=== PATIENT | female | born 1985 | race Caucasian/White ===

== ENCOUNTER 2017-05-09 19:34 | Observation (INO) ==
[2017-05-09] MEDS ORDERED: Ringers Solution, Lactated 1,000 ML IVC SCH (20:00)
--- NOTE | 2017-05-09 20:29 | OB/GYN History & Physical ---
Date of Encounter: 05/09/17 Time of Encounter: 20:15 Assessment and Plan (1) Lower abdominal pain Current visit: Yes Status: Acute History of Monitoring - baseline 140 with variability and accels - category I Contractions irregular Unknown history - ultrasound for dating, obtain labs Hydrate - LR 125 ml/hr Check UA Cervix closed Labor eval (2) Chest pain Current visit: Yes Status: Acute Symptoms unlikely cardiac in nature Obtain EKG Qualifiers: Chest pain type: unspecified Qualified Code(s): R07.9 - Chest pain, unspecified (3) History of delivery Current visit: Yes Status: Acute (4) Chronic hypertension Current visit: Yes Status: Acute BP 136/88 - not currently taking any medications (5) 39 weeks gestation of Current visit: Yes Status: Acute History of Present Illness Chief complaint: Lower Abdominal Pain HPI: Ms. Mcpherson is a 32 year old female at 39w0d presenting to L&D for lower abdominal pain and pain along her scar. She states that the pain is constant, non-radiating, and began yesterday and has been worsening. She is having contractions about every 12 minutes. She also reports some intermittent retrosternal chest pain over the past day as well. There is no pattern to the chest pain and it is not associated with other symptoms such as nausea or diaphoresis. She recently moved from [facility] about 2-3 weeks ago. She states that she did received care, but has no records with her. Her LIBAN of 05/16/17. She does have chronic HTN, but is not on any medications. Prior delivery was via for breech presentation. She states that there have been no problems with this . Reports good movement. Denies loss of fluid, vaginal bleeding, or vaginal discharge. Admits to headache and some blurry vision earlier today that has now resolved. Also admits to urinary frequency. She denies fevers, chills, dyspnea, N/V, constipation, diarrhea, dysuria, or edema. labs unknown. Past Med Surg Social Fam HX - Past Medical History Medical history: hypertension Psychiatric history: no psych history - Past Surgical History Surgical History: - Social History Smoking Status: Current every day smoker Packs per day: 1/2 pac Alcohol use: none Drug use: none - Family History Father Family Member Ethnicity: Non- Living Status: Still Living Hx Family Cardiac Disorders: Yes (HTN, cardiac stent) Hx Family Cancer: Yes (bladder) Obstetrical History - Pregnancies : 3 Para: 2 Term: 1 : 0 Ab's: 1 Livin Review of System OB All systems PM: reviewed and no additional remarkable complaints except as stated Exam - Constitutional Constitutional: well developed, well nourished, no acute distress, average body habitus - HEENT HEENT: Normocephaly, Mucus Membranes Moist - Lungs Respiratory exam: CTAB - Cardiovascular Cardiovascular exam: RRR, +S1, +S2 - Abdomen Abdomen: Present: bowel sounds normal, gravid. Absent: guarding noted Abdomen detail: right lower quadrant: tenderness, left lower quadrant: tenderness - Extremities Extremities exam: normal capillary refill, normal inspection - Vagina Vagina: Present: normal moisture - Cervix Dilation: 0 (per nursing) - Uterus Uterus exam: Present: normal size, normal contour - Comments Comments: FHT - baseline 140 with variability and accels - category I Contractions irregular Results Result Diagrams: 05/09/17 20:23 All other labs normal. - VTE Reasons for not Prescribing Prophylaxis: Treatment not Indicated - Low risk for VTE - Attending Attestation I examined this patient and my medical decision-making was reviewed with the Resident Physician. I agree with the documented findings, disposition and treatment plan as described except to the extent set forth below. Reviewed labs and urine - patient dehydrated. IV fluids - 1 liter bolus given. CBC - WNL NST - reactive category I tracing; no contractions noted after returned from ultrasound Ultrasound confirms dating; normal JOAN EKG - NSR Pain in scar not resolved. Patient wishes to go home and return tomorrow for ; encouraged patient to stay until AM for repeat due to unusual pain. Discussed POC with Dr Shafer. Patient signed out against medical advice.
[2017-05-09 20:37] LABS: Basophils # 0.1 K/mcL (0.0-0.2); Basophils % 0.4 %; Eosinophils # 0.1 K/mcL (0.0-0.6); Eosinophils % 0.6 %; Hematocrit 33.7 % (35.3-44.9); Immature Granulocytes % 1.8 % (0-4); Lymphocytes # 2.8 K/mcL (0.6-4.6); Lymphocytes % 18.6 %; Mean Corpuscular HGB Conc 32.6 g/dL (31.6-35.5); Mean Corpuscular Hemoglobin 27.9 pg (28.0-33.3); Mean Corpuscular Volume 85.5 fL (83.0-100.0); Mean Platelet Volume 11.1 fL (9.4-12.4); Monocytes # 0.6 K/mcL (0.0-1.3); Monocytes % 4.3 %; Nucleated Red Blood Cells 0.1 /100 WBC (0); Platelet Count 257 K/mcL (140-400); Red Blood Count 3.94 M/mcL (3.82-4.97); Red Cell Distribution Width 13.2 % (11.5-14.5); Segmented Neutrophils % 74.3 %
[2017-05-09 21:29] LABS: Bilirubin,Urine Small (Negative); Blood,Urine Negative (Negative); Clarity,Urine Cloudy (Clear); Color,Urine Dark Yellow (Yellow); Glucose,Urine (UA) Normal (Normal); Ketones,Urine 40 mg/dL (Negative); Leukocyte Esterase,Urine Small (Negative); Nitrite,Urine Negative (Negative); Protein,Urine Trace mg/dL (Neg-Trace); Specific Gravity,Urine 1.026 (1.010-1.025); Urobilinogen,Urine Normal (Normal)
[2017-05-09 21:31] LABS: Hyaline Casts,Urine Few per lpf (None-Few); Squamous Epithelial Cell,Urine Many per lpf (None-Few); WBC,Urine 15-30 per hpf (0-3)
[2017-05-09 21:44] LABS: Bacteria,Urine Moderate per hpf (None-Few); Mucus,Urine Many (Few)
[2017-05-09 21:51] LABS: Amphetamine Screen,Urine Negative ng/mL (Cutoff=1000); Barbiturate Screen,Urine Negative ng/mL (Cutoff=200); Benzodiazepines Screen,Urine Negative ng/mL (Cutoff=200); Cannabinoid Screen,Urine Negative ng/mL (Cutoff = 50); Cocaine Screen,Urine Negative ng/mL (Cutoff= 300); Opiate Screen,Urine Negative ng/mL (Cutoff=300); Phencyclidine Screen,Urine Negative ng/mL (Cutoff=25)
[2017-05-10 03:20] LABS: HIV-1&2 Antibody & p24 Ag Nonreactive (Nonreactive); Hepatitis B Surface Antigen Nonreactive (Nonreactive)
[2017-05-10 11:30] LABS: Rubella IgG Antibody Negative (POSITIVE); Varicella Zoster IgG Antibody Positive
== END 2017-05-09 22:32 | disposition left against medical advice (07) ==
LOC: 1NENULAB
PROVIDERS: ADMIT Advanced Practice Midwife; ATTEND Advanced Practice Midwife

== ENCOUNTER 2017-05-10 06:12 | Inpatient (IN) ==
[2017-05-10] MEDS ORDERED: Metoclopramide 10 MG/2 ML VIAL IVP ONE (06:45)
[2017-05-10] MEDS ORDERED: Naloxone 0.4 MG/ML INJ IVP PRN (06:45)
[2017-05-10] MEDS ORDERED: Ondansetron 4 MG/2 ML VIAL IVP PRN ×4 (06:45→14:42)
[2017-05-10] MEDS ORDERED: Oxytocin 20 units/ LR 1000 mL 20 UNIT/1,000 ML BAG IVC ONE ×3 (06:45→14:23)
[2017-05-10] MEDS ORDERED: Oxytocin 20 units/ LR 1000 mL 20 UNIT/1,000 ML BAG IVC SCH ×3 (06:45→14:45)
[2017-05-10] MEDS ORDERED: Famotidine 20 MG/2 ML VIAL IVP ONE (06:45)
[2017-05-10] MEDS ORDERED: Ringers Solution, Lactated 1,000 ML ONE ×4 (06:58→09:49)
[2017-05-10 07:20] LABS: Basophils # 0.1 K/mcL (0.0-0.2); Basophils % 0.5 %; Eosinophils # 0.1 K/mcL (0.0-0.6); Eosinophils % 0.8 %; Hematocrit 33.1 % (35.3-44.9); Hemoglobin 10.8 g/dL (11.5-15.4); Lymphocytes # 2.5 K/mcL (0.6-4.6); Lymphocytes % 18.6 %; Mean Corpuscular HGB Conc 32.6 g/dL (31.6-35.5); Mean Corpuscular Hemoglobin 28.1 pg (28.0-33.3); Mean Platelet Volume 11.4 fL (9.4-12.4); Monocytes # 0.7 K/mcL (0.0-1.3); Neutrophils # 9.7 K/mcL (1.6-8.9); Nucleated Red Blood Cells 0.2 /100 WBC (0); Platelet Count 264 K/mcL (140-400); Red Blood Count 3.85 M/mcL (3.82-4.97); Red Cell Distribution Width 13.2 % (11.5-14.5); Segmented Neutrophils % 73.1 %
[2017-05-10] MEDS ORDERED: EPHEDrine 50 MG/ML VIAL ONE (07:50)
[2017-05-10] MEDS ORDERED: *HR* FentaNYL (PF) 100 MCG/2 ML VIAL ONE (07:50)
[2017-05-10] MEDS ORDERED: Morphine Sulfate/PF 5mg/10mL Vial ONE (07:50)
[2017-05-10] MEDS ORDERED: Ondansetron 4 MG/2 ML VIAL ONE (07:53)
[2017-05-10] MEDS ORDERED: *HR* Phenylephrine 10 MG/ML VIAL ONE (07:53)
[2017-05-10] MEDS ORDERED: Dexamethasone 4 MG/ML VIAL ONE (07:53)
[2017-05-10] MEDS ORDERED: *HR* Oxytocin 10 UNIT/ML VIAL IM ONE ×2 (07:55→09:49)
[2017-05-10] MEDS ORDERED: ceFAZolin 2,000 MG in Water for inj. (sterile) 20 ML IVP ONE (08:02)
--- NOTE | 2017-05-10 08:20 | Anesthesia Evaluation PreOp ---
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 Any Significant HX Other Medical History: Denies Any Significant HX Anesthesia History: No Prior Anesthetic Complications : Yes Test: Positive Alcohol Use: none Drug use: none Medications and Allergies No Known Home Drugs 05/10/17 [History] 3 Allergy/AdvReac Type Severity Reaction Status Date / Time Fish Containing Products Allergy Anaphylaxis Verified 05/10/17 06:19 [place] And Derivatives AdvReac Rash Verified 05/10/17 06:19 - Meds/Allergy Pre-op Review Medications Reviewed: Yes Allergies Reviewed: Yes Beta Blockers on Current Med List: No Anesthesia Results - Labs 05/10/17 06:30 Anesthesia Exam - HEENT Pupil (Motor): Pupils equal Mallampati: III Teeth: Normal Oral Opening: Less than or equal to 3 - 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
--- NOTE | 2017-05-10 08:21 | History & Physical Report ---
Date of Encounter: 05/10/17 Time of Encounter: 08:19 24 Hour HP Update - Instructions Instructions: If the History and Physical is less than 30 days old and was completed prior to A.M. admission and or procedure and has NOT been updated on calendar day of procedure please complete this update prior to performing procedure. - Update Patient reports changes in Medical Condition: No Changes in examination, assessment, or condition: No Changes in Medication: No Preop tests/diagnostics Reviewed: Yes Surgery Remains Indicated: Yes Consent for Planned Operative Procedure(s) Verified: Yes Additions to current History and Physical: heart tones 130s, category 1, contractions irregular - Pre-Operative Checklist Preoperative Checklist Indicated: Yes Prophylactic Antibiotic Ordered: Yes Home Medications Include Beta Tita: No Beta Tita Taken Today (Day of Surgery): No Beta Tita Taken Yesterday (Day Prior to Surgery): No Is VTE Prophylaxis Indicated?: Yes
[2017-05-10 08:28] LABS: Amphetamine Screen,Urine Negative ng/mL (Cutoff=1000); Barbiturate Screen,Urine Negative ng/mL (Cutoff=200); Benzodiazepines Screen,Urine Negative ng/mL (Cutoff=200); Cannabinoid Screen,Urine Negative ng/mL (Cutoff = 50); Cocaine Screen,Urine Negative ng/mL (Cutoff= 300); Opiate Screen,Urine Negative ng/mL (Cutoff=300); Phencyclidine Screen,Urine Negative ng/mL (Cutoff=25)
--- NOTE | 2017-05-10 09:27 | Anesthesia Procedures ---
Date of Encounter: 05/10/17 Time of Encounter: 08:30 Procedures: Anesthesia - Epidural/Spinal Patient ID/Chart reviewed: Yes Patient examined: Yes OB Eval: Gestational age: 40 OB Eval: : 3 OB Eval: Hx Para: 1 OB Eval: Contractions: Non-stressed pattern Consent Obtained: Yes Site Prep: Aseptic Technique, Sterile prep and drape, Povidone-Iodine 1% Patient position: upright Local Anesthetic: Lidocaine 1% Amount of Local Anesthetic used: 3 Interspace Used: L4-L5 Loss of Resistance (MARIA ANTONIA): No Blood: No CSF: Yes Paresthesia: Yes Spinal Dose: bupivicaine0.75% [id number] Vitals + FHT's: stable throughout see nursing notes
[2017-05-10] MEDS ORDERED: Ondansetron 4 MG/2 ML VIAL IVP ONE (09:28)
[2017-05-10] MEDS ORDERED: *HR* Morphine 2 MG/ML SYRINGE IVP PRN (09:28)
[2017-05-10] MEDS ORDERED: Ibuprofen 400 MG TABLET PO PRN (09:28)
[2017-05-10] MEDS ORDERED: *HR* OxyCODONE/APAP 5/325 TABLET PO PRN ×3 (09:28→14:42)
--- NOTE | 2017-05-10 10:17 | OB/GYN Procedure Note ---
Section - Date of procedure: 05/10/17 Preop diagnosis: desires repeat , other ( care elsewhere) Post-op diagnosis: same (Pelvic adhesions) Procedure: section, repeat low transverse (Extensive adhesiolysis) Surgeon: Jyotsna Levine Estimated blood loss (cc): 400 Was there an judicial administrative assistant present: Yes Logistics Program Manager: Bailey Pablo Anesthesiologist: Walker Tubbs Medication Nurse: Vivi Mccollum Anesthesia Type: Spinal section complications: none Disposition: L&D Recovery Room Specimens: Placenta, Cord segment - (s) Infant A Delivery Date: 05/10/17 Infant Delivery Time: 09:14 Presentation: vertex Position: CLARE Route of delivery: other Gender: Female Viability: Viable Pounds: 7 Ounces: 0 at 1 minute: 8 at 5 minutes: 9 Shoulder Dystocia: not encountered Placenta: spontaneous, uterine exploration Cord: nuchal cord, 3 umbilical vessels, nuchal reduced - Narrative Narrative: The patient was taken to the operating room and given spinal anesthesia adequate for abdominal and pelvic surgery. She was prepped and draped in the usual sterile fashion. Timeout was completed. A Pfannenstiel skin incision was made with the scalpel. The subcutaneous tissue was sharply dissected down to the fascia. The fascia was incised in the midline and extended bilaterally with Pino scissors.. 2 straight [place] clamps were placed on the inferior fascial edge and the fascia was bluntly and sharply dissected away from the rectus muscles. This was repeated superiorly. The peritoneum was bluntly and sharply entered with omental adhesions noted densely adherent. There were dense omental adhesions anteriorly, over the anterior wall of the uterus and densely adherent to the peritoneal bladder reflection which were lysed with a Bovie and hemostasis achieved. Vesicouterine peritoneum was incised and reflected inferiorly and the bladder blade was replaced to protect the bladder. The lower uterine segment was extremely thin and was entered into the amnion with the scalpel. Clear fluid was seen. This was followed by the vertex delivery of a viable and vigorous female infant weighing 7# 0 oz with Apgars of 8 at 1 minute and 9 at 5 minutes. was placed on the maternal abdomen. The cord was clamped and cut after a delay. Infant was handed to the nursery care team. The placenta was delivered spontaneous and intact. The uterine cavity was digitally palpated and wiped clean with a moist lap sponge. There were no placental remnants identified. A ring forcep was used to make sure the cervix was dilated and then this was discarded off the field. Clamps were placed on the uterine angles and the uterine incision was closed using 0 Vicryl suture in a running, locking fashion. A second imbricating layer completed the uterine closure with 0 Vicryl suture. The uterus was then examined and noted to be hemostatic. The pelvis was then irrigated with a copious amount of sterile water. Again, good hemostasis was identified. Tubes and ovaries were inspected and noted to be grossly normal. The left fallopian tube was noted to be adherent to the anterior peritoneal surface. This was lysed with Metzenbaum scissors and hemostasis was achieved. The peritoneal edges and rectus muscles were then examined and hemostasis achieved. The fascia was then closed using 0 PDS loop in a running nonlocking fashion. Subcutaneous tissue was irrigated with sterile water, good hemostasis was achieved. The skin was then closed using a 4-0 Monocryl in a running subcuticular fashion. A dressing was placed. Estimated blood loss was 400cc. The Johnson was noted to be draining clear yellow urine at the end of the procedure. All sponge and instrument counts are correct at the end of the procedure. The patient was taken to the recovery room in stable condition after being given information in detail of the findings during surgery. 45 minute was spent for lysis of adhesions..
[2017-05-10] MEDS ORDERED: Simethicone 80 MG TAB.CHEW PO PRN ×2 (12:55→14:42)
[2017-05-10] MEDS ORDERED: Sennosides 8.6 MG TABLET PO PRN ×2 (12:55→14:42)
[2017-05-10] MEDS ORDERED: Ibuprofen 600 MG TABLET PO PRN ×2 (12:55→14:42)
[2017-05-10] MEDS ORDERED: Metoclopramide 10 MG/2 ML VIAL IVP PRN ×2 (12:55→14:42)
[2017-05-10] MEDS ORDERED: Ringers Solution, Lactated 1,000 ML IVC SCH (14:45)
[2017-05-11 05:14] LABS: Basophils % 0.2 %; Eosinophils # 0.1 K/mcL (0.0-0.6); Eosinophils % 0.5 %; Hemoglobin 9.6 g/dL (11.5-15.4); Immature Granulocytes % 1.3 % (0-4); Lymphocytes # 3.2 K/mcL (0.6-4.6); Lymphocytes % 19.1 %; Mean Corpuscular Hemoglobin 27.3 pg (28.0-33.3); Mean Corpuscular Volume 85.2 fL (83.0-100.0); Mean Platelet Volume 11.7 fL (9.4-12.4); Monocytes # 0.8 K/mcL (0.0-1.3); Neutrophils # 12.2 K/mcL (1.6-8.9); Platelet Count 229 K/mcL (140-400); Red Blood Count 3.52 M/mcL (3.82-4.97); Red Cell Distribution Width 13.2 % (11.5-14.5); Segmented Neutrophils % 73.9 %
[2017-05-11 08:06] VITALS: BP 116/69
[2017-05-11] MEDS ORDERED: Prenatal Vit/FA 1 EACH TABLET PO SCH ×2 (09:00)
[2017-05-11] MEDS ORDERED: PRENATAL COMPLETE PO SCH (09:00)
--- NOTE | 2017-05-11 09:00 | Discharge Summary ---
Date of Encounter: 05/11/17 Time of Encounter: 08:58 - Discharge Diagnosis (1) Status post section Priority: Primary Status: Acute Comments: Pt is POD #1 s/p repeat Pain controlled. Tolerating po intake, voiding well, ambulating well No flatus yet Pt would like to go home - may be discharged later today pending flatus and continued improvement (2) Chronic hypertension Priority: Secondary Status: Acute Comments: Normotensive. Not on any meds - continued management as an out-patient - Discharge Medications Prescriptions: Ibuprofen [Motrin] 600 mg PO Q6HR PRN #60 tablet PRN Reason: Cramping Docusate [Colace] 100 mg PO BID #60 capsule Ferrous Sulfate 325 mg PO DAILY #30 tablet Home Medications: Complete Caplet 05/10/17 [History] Docusate [Colace] 100 mg PO BID #60 capsule 05/11/17 [Rx] Ferrous Sulfate 325 mg PO DAILY #30 tablet 05/11/17 [Rx] Ibuprofen [Motrin] 600 mg PO Q6HR PRN #60 tablet 05/11/17 [Rx] Allergies/Adverse Reactions: 3 Allergy/AdvReac Type Severity Reaction Status Date / Time Fish Containing Products Allergy Anaphylaxis Verified 05/10/17 06:19 [place] And Derivatives AdvReac Rash Verified 05/10/17 06:19 Data Procedures and tests throughout hospitalization: Laboratory Tests 05/10/17 05/10/17 05/11/17 06:30 06:50 04:04 WBC 13.3 H 16.5 H RBC 3.85 3.52 L Hgb 10.8 L 9.6 L Hct 33.1 L 30.0 L MCV 86.0 85.2 MCH 28.1 27.3 L MCHC 32.6 32.0 RDW 13.2 13.2 Plt Count 264 229 MPV 11.4 11.7 Immature Gran % 2.0 1.3 Seg Neutrophils % 73.1 73.9 Lymphocytes % 18.6 19.1 Monocytes % 5.0 5.0 Eosinophils % 0.8 0.5 Basophils % 0.5 0.2 Neutrophils # 9.7 H 12.2 H Lymphocytes # 2.5 3.2 Monocytes # 0.7 0.8 Eosinophils # 0.1 0.1 Basophils # 0.1 0.0 Nucleated RBCs/100 WBC 0.2 H Urine Opiates Screen Negative Ur Barbiturates Screen Negative Ur Phencyclidine Scrn Negative Ur Amphetamines Screen Negative U Benzodiazepines Scrn Negative Urine Cocaine Screen Negative U Marijuana (THC) Screen Negative Labs on day of discharge: Labs from last 24 hours 05/11/17 04:04 WBC 16.5 H RBC 3.52 L Hgb 9.6 L Hct 30.0 L MCV 85.2 MCH 27.3 L MCHC 32.0 RDW 13.2 Plt Count 229 MPV 11.7 Immature Gran % 1.3 Seg Neutrophils % 73.9 Lymphocytes % 19.1 Monocytes % 5.0 Eosinophils % 0.5 Basophils % 0.2 Neutrophils # 12.2 H Lymphocytes # 3.2 Monocytes # 0.8 Eosinophils # 0.1 Basophils # 0.0 Date of admission: 05/10/17 06:12 Primary care physician: PCP REYNALDO Consults: 05/10/17 14:42 Consult to Skin Piler (W&C) [CONS] Routine Reason For Exam: Reason for SW Consult: care in [facility] Discharging clinician: Osvaldo Mason Anticipated date of discharge: 05/11/17 - Patient Status Disposition: Home, Self-Care Condition: Good Functional capacity at discharge: independent ambulation Overall status at discharge: patient is progressing back to baseline - Discharge Instructions Follow Up With: NONE,PCP [Primary Care Provider] - Additional Instructions: Take your medications as prescribed Feed your baby every 2-3 hours Follow-up with OB in 1-2 weeks for incision check Follow-up with OB in 6 weeks for routine follow-up - Diet and Activity Activity: increase activity as tolerated Diet: advance to your usual diet Hospital Course Reason for admission: section Delivery: section Episiotomy: none Laceration: none Other procedures: none complications: none Discharge diagnosis: IUP at term delivered [place] baby: female Hospital course: - Date of procedure: 05/10/17 Preop diagnosis: desires repeat , other ( care elsewhere) Post-op diagnosis: same (Pelvic adhesions) Procedure: section, repeat low transverse (Extensive adhesiolysis) Surgeon: Jyotsna Levine Estimated blood loss (cc): 400 Was there an communications assistant present: Yes Patient Educator: Bailey Pablo Anesthesiologist: Walker Tubbs Clerical Secretary: Vivi Mccollum Anesthesia Type: Spinal section complications: none Disposition: L&D Recovery Room Specimens: Placenta, Cord segment - (s) Infant A Infant Delivery Date: 05/10/17 Infant Delivery Time: 09:14 Presentation: vertex Position: CLARE Route of delivery: other Gender: Female Viability: Viable Pounds: 7 Ounces: 0 at 1 minute: 8 at 5 minutes: 9 Shoulder Dystocia: not encountered Placenta: spontaneous, uterine exploration Cord: nuchal cord, 3 umbilical vessels, nuchal reduced Time Attestation: Total time spent providing and/or coordinating discharge services: Time Spent: Less than 30 minutes - VTE Reasons for not Prescribing Prophylaxis: Treatment not Indicated - Low risk for VTE Documentation of Mechanical Device: Intermittent pneumatic compression device - Attending Attestation I examined this patient and my medical decision-making was reviewed with the Resident Physician. I agree with the documented findings, disposition and treatment plan as described. Teresa Johnson CNM Exam - Constitutional Vitals: Temp Pulse Resp BP Pulse Ox 97.8 F 58 16 116/69 98 05/11/17 07:50 05/11/17 07:50 05/11/17 07:50 05/11/17 07:50 05/11/17 07:50 General appearance IM: A&O X 3, no acute distress - Respiratory Respiratory exam: Present: CTAB - Cardiovascular Cardiovascular exam IM: Present: RRR, +S1, +S2 - GI/Abdominal GI/Abdominal exam IM: normal bowel sounds, no peritoneal signs Incision: normal (dressing in place - clean, dry, intact), dry, intact - Uterine Tone: Firm Uterus Position: 1 Finger Below Umbilicus - Extremities Exam Extremities exam IM: Present: normal capillary refill, normal inspection - Neurological Exam Neurological exam: alert, no focal deficits
--- NOTE | 2017-05-11 19:05 | Electrocardiograph Report ---
[place] [id number] Test Date: 2017-05-09 Pat Name: Randi Mcpherson Department: 101 Room: [facility] Gender: F Pattern Puncher: LATOYA : 1985 Requested By: Jyotsna Levine Order Number: [id number] Reading MD: Wili Trujillo MD Measurements Intervals [place] Rate: 68 P: -16 UT: 186 QRS: 32 QRSD: 97 T: -4 QT: 377 QTc: 394 Interpretive Statements SINUS RHYTHM Electronically Signed On 05-11-2017 19:03:50 EST by Wili Trujillo MD
== END 2017-05-11 14:45 | disposition home or self-care (01) | DRG 766 ==
LOC: 1NENULAB 06:12 → 1NENUOBS 12:53
PROVIDERS: ADMIT Obstetrics & Gynecology; ATTEND Obstetrics & Gynecology